=== PATIENT | male | born 1995 | race Caucasian/White ===

== ENCOUNTER 2017-06-14 11:17 | Emergency (ER) | payer MEDICAID, OTHER ==
[~2017-06-14] VITALS: Ht 180.3 cm; Wt 80.0 kg
[2017-06-14] MEDS ORDERED: AZITHROMYCIN 500 MG TABLET PO ONE (14:30)
[2017-06-14] MEDS ORDERED: CEFTRIAXONE SODIUM 250 MG/VIAL IM ONE (14:30)
[2017-06-14 14:45] LABS: CLARITY URINE CLEAR (CLEAR); COLOR URINE YELLOW (YELLOW); KETONES URINE NEGATIVE (NEGATIVE); LEUKOCYTE ESTERASE URINE NEGATIVE (NEGATIVE); NITRITE URINE NEGATIVE (NEGATIVE); OCCULT BLOOD URINE NEGATIVE (NEGATIVE); PH URINE 6.5 (4.5-8.0); PROTEIN URINE NEGATIVE (NEGATIVE); SPECIFIC GRAVITY URINE 1.017 (1.005-1.030); UROBILINOGEN URINE 0.2 E.U./dL (0.2-1.0)
[2017-06-14] MEDS ORDERED: IBUPROFEN 600MG TABLET PO ONE (15:15)
[2017-06-14] MEDS ORDERED: LIDOCAINE HCL 1% 20ML VIAL (Pyxis) INJ MC ONE (15:45)
[2017-06-14 16:33] VITALS: BP 122/77
[2017-06-17 04:19] LABS: CHLAMYDIA TRACHOMATIS NAA Negative (Negative); NEISSERIA GONORRHOEAE NAA Negative (Negative)
== END 2017-06-14 16:33 | disposition home or self-care (01) ==
LOC: ER 11:40
DX: N43.3 Hydrocele, unspecified (principal); N50.3 Cyst of epididymis; F17.210 Nicotine dependence, cigarettes, uncomplicated; F12.90 Cannabis use, unspecified, uncomplicated; Z86.19 Personal history of other infectious and parasitic diseases
CPT/HCPCS: 76870; 81003; 87491; 87591; 93976; 96372; 99285; J0696; J3490

== ENCOUNTER 2018-01-31 19:49 | Emergency (ER) | payer SELFPAY ==
[~2018-01-31] VITALS: Ht 182.9 cm; Wt 83.0 kg
[2018-01-31 21:13] LABS: CLARITY URINE CLEAR (CLEAR); COLOR URINE YELLOW (YELLOW); KETONES URINE NEGATIVE (NEGATIVE); LEUKOCYTE ESTERASE URINE NEGATIVE (NEGATIVE); NITRITE URINE NEGATIVE (NEGATIVE); OCCULT BLOOD URINE NEGATIVE (NEGATIVE); PH URINE 5.5 (4.5-8.0); PROTEIN URINE NEGATIVE (NEGATIVE); SPECIFIC GRAVITY URINE 1.033 (1.005-1.030)
[2018-02-01 00:43] VITALS: BP 133/82
== END 2018-02-01 00:44 | disposition home or self-care (01) ==
LOC: ER 19:49
DX: N43.3 Hydrocele, unspecified (principal); R03.0 Elevated blood-pressure reading, without diagnosis of hypertension; F12.10 Cannabis abuse, uncomplicated
CPT/HCPCS: 76870; 81003; 93976; 99285

== ENCOUNTER 2018-08-28 13:25 | Emergency (ER) | payer SELFPAY ==
[~2018-08-28] VITALS: Ht 182.9 cm; Wt 82.0 kg
[2018-08-28] MEDS ORDERED: IBUPROFEN 800MG TABLET PO ONE (18:00)
[2018-08-28 19:47] VITALS: BP 130/78
== END 2018-08-28 19:45 | disposition home or self-care (01) ==
LOC: ER 14:11
DX: S83.91XA Sprain of unspecified site of right knee, initial encounter (principal); W01.0XXA Fall on same level from slipping, tripping and stumbling without subsequent striking against object, initial encounter; Y93.89 Activity, other specified; Y92.89 Other specified places as the place of occurrence of the external cause
CPT/HCPCS: 73562; 99283; Z7610